=== PATIENT | female | born 1950 | race Caucasian/White ===

== ENCOUNTER 2021-04-23 10:19 | Outpatient (CLI) | payer MEDICARE, SELFPAY ==
--- NOTE | ~2021-04-23 | XR_ITS ---
EXAMINATION: XR foot RT standing 2V DATE: 04/23/2021 11:05 INDICATION: Crest syndrome. TECHNIQUE: 2 views of right foot standing were obtained. COMPARISON: None. FINDINGS: Head of fourth proximal phalanx is small, likely from prior surgery. There are fifth proxim al and distal phalanges, but no separate middle phalanx. There is widening of fifth interphalangeal j oint. There is mild osteoarthritis of first interphalangeal joint with periarticular calcifications. There is mild osteoarthritis of talonavicular joint. There is an enthesophyte at plantar aspect of ca lcaneal tuberosity. IMPRESSION: 1. Mild polyarticular osteoarthritis. 2. Mild widening of fifth interphalangeal joint, which may be from prior surgery or trauma. Reviewed, dictated and finalized at location A. IMPRESSION: 1. Mild polyarticular osteoarthritis. 2. Mild widening of fifth interphalangeal joint, which may be from prior surger y or trauma.
--- NOTE | ~2021-04-23 | XR_ITS ---
EXAMINATION: XR foot LT standing 2V DATE: 04/23/2021 11:05 INDICATION: Crest syndrome. TECHNIQUE: 2 views of left foot standing were obtained. COMPARISON: None. FINDINGS: Bone alignment is normal. There are fifth proximal and distal phalanges, but no middle phal anx. There is widening of fifth interphalangeal joint. No fracture. There is mild osteoarthritis of f irst metatarsophalangeal joint. There is an enthesophyte at plantar aspect of calcaneal tuberosity. IMPRESSION: 1. Mild osteoarthritis of fifth metatarsophalangeal joint. 2. Widening of fifth interphalangeal joint, which may be from prior trauma or surgery. Reviewed, dictated and finalized at location A. IMPRESSION: 1. Mild osteoarthritis of fifth metatarsophalangeal joint. 2. Widening of fifth interphalangeal joint, which may be from prior trauma or s urgery.
--- NOTE | ~2021-04-23 | XR_ITS ---
EXAMINATION: XR sacroiliac joints min 3V DATE: 04/23/2021 11:05 INDICATION: Crest syndrome. TECHNIQUE: 3 views of the sacroiliac joints were obtained. COMPARISON: None. FINDINGS: Bone alignment is normal. No fracture. There is mild osteoarthritis of the hips. There is m oderate osteoarthritis of the sacroiliac joints. Osteitis pubis is noted. There is moderate lumbar sp ondylosis. IMPRESSION: 1. Polyarticular osteoarthritis. Reviewed, dictated and finalized at location A.
--- NOTE | ~2021-04-23 | XR_ITS ---
EXAMINATION: XR hand BI arthritis min 3V DATE: 04/23/2021 11:05 INDICATION: Crest syndrome. TECHNIQUE: 4 views of right hand and 4 views of left hand on 7 radiographs were obtained. COMPARISON: None. FINDINGS: RIGHT HAND: Bone alignment is normal. No fracture. There is moderate osteoarthritis of first carpomet acarpal joint and third metacarpophalangeal joint. There is mild osteoarthritis of most of the metaca rpophalangeal joints and interphalangeal joints. There is moderate osteoarthritis of first interphala ngeal joint. LEFT HAND: Bone alignment is normal. No fracture. There is mild osteoarthritis of first carpometacarp al joint and most of the metacarpophalangeal joints and interphalangeal joints. There is moderate ost eoarthritis of first interphalangeal joint and second and third distal interphalangeal joints. There are periarticular calcifications at third proximal interphalangeal joint and second distal interphala ngeal joint. IMPRESSION: 1. Polyarticular osteoarthritis. Reviewed, dictated and finalized at location A.
[2021-04-23 11:42] LABS: Hematocrit 44.8 % (37.0-47.0); Hemoglobin 14.3 g/dL (12.0-15.0); Mean Corpuscular HGB Conc 31.9 g/dl (32-36); Mean Corpuscular Hemoglobin 31.6 pg (26-34); Mean Corpuscular Volume 98.9 fl (80-100); Mean Platelet Volume 9.4 fl (7.4-10.4); Platelet Count Result 366 k/mm3 (150-375); Red Blood Count 4.53 M/mm3 (4.2-5.4); Red Cell Distribution Width 13.1 % (11.5-14.5); White Blood Count 8.1 K/mm3 (4.5-10.0)
[2021-04-23 11:45] LABS: Add Urine Microscopic? YES; Appearance Urine Cloudy (Clear); Bilirubin Urine Negative (Negative); Blood Urine Negative (Negative); Color Urine Amber (Yellow); Glucose Urine UA Negative (Negative); Ketones Urine Negative (Negative); Leukocyte Esterase Ur Trace LEU/UL (Negative); Mucus Urine Rare /lpf; Nitrate Urine Negative (Negative); Protein Urine Negative (Negative); RBC Urine 0-2 /hpf (0-2); Specific Grav Ur 1.023 (1.001-1.035); Squamous Epithelial Cell Urine Occasional /hpf (Few); Urobilinogen Urine Negative mg/dL (<2.0); WBC Urine 0-3 /hpf
[2021-04-23 12:07] LABS: Complement C3 149 mg/dL (88-165); Rheumatoid Factor < 8.6 IU/ML (<12)
[2021-04-23 12:09] LABS: Alanine Aminotransferase 27 U/L (4-35); Albumin Level 4.3 g/dL (3.5-5.1); Alkaline Phosphatase 67 U/L (38-126); Anion Gap 13 mmol/L (8-16); Aspartate Amino Transferase 31 U/L (14-36); Bilirubin,Total 0.4 mg/dL (0.2-1.3); Blood Urea Nitrogen 11 mg/dL (7-17); CRP 0.5 mg/dL (<1.0); Calcium 9.4 mg/dL (8.4-10.2); Carbon Dioxide 21 mmol/L (22-30); Chloride 107 mmol/L (98-107); Estimated Glomerular Filt Rate > 60; Glucose 102 mg/dL (65-110); Sodium 141 mmol/L (137-145)
[2021-04-23 12:51] LABS: Erythrocyte Sedimentation Rate 22 mm/hr (0-20)
[2021-04-27 10:53] LABS: Scleroderma 70 Antibody <1.0
[2021-04-28 19:40] LABS: SM Antibody <1.0; SM/RNP Antibody <1.0; SS-A <1.0; SS-B <1.0
[2021-04-29 12:08] LABS: Anti Nuclear Antibody Titer >=1:1280 (Negative)
== END 2021-04-23 10:20 | disposition home or self-care (01) ==
LOC: ANHIMG 10:41
PROVIDERS: PCP Family Medicine; Visit Provider Internal Medicine
DX: M34.1 CR(E)ST syndrome (principal); Z79.899 Other long term (current) drug therapy; M53.3 Sacrococcygeal disorders, not elsewhere classified; M19.041 Primary osteoarthritis, right hand; M19.042 Primary osteoarthritis, left hand; M19.071 Primary osteoarthritis, right ankle and foot
CPT/HCPCS: 36415; 72202; 73130; 73620; 80053; 81001; 85027; 85652; 86038; 86039; 86140; 86160; 86225; 86235; 86430